=== PATIENT | female | born 1980 ===

== ENCOUNTER 2018-02-18 23:35 | Emergency (ER) | payer OTHER ==
[2018-02-19 00:04] VITALS: BMI 27.7
[2018-02-19 00:53] VITALS: RESP 16; TEMP 98.1
--- NOTE | 2018-02-19 01:36 | ED PDOC ---
Arrival/HPI - General Chief Complaint: Lower Extremity Problem/Injury Time Seen by Provider: 02/19/18 00:28 Historian: Patient - History of Present Illness Narrative History of Present Illness (Text): 02/19/18 01:33 37-year-old female presents today with a 6 day history of left foot and ankle pain status post injury. Patient states 6 days ago she stepped incorrectly while going down the stairs and twisted the foot and ankle. Patient is complaining of pain across the entire foot and along the entire ankle. Patient has been using crutches for ambulation. No medications have been taken for pain at home. Patient denies numbness weakness or tingling in the extremity. Denies calf pain. Patient states pain worsened today. She is complaining of minimal swelling. Denies proximal fibular pain. No other complaints Past Medical History - Provider Review Nursing Documentation Reviewed: Yes - Travel History Have you recently traveled outside [place] w/in the past 3 mons?: No - Psychiatric Hx Substance Use: No - Anesthesia Hx Anesthesia: Yes Hx Anesthesia Reactions: No Family/Social History - Physician Review Nursing Documentation Reviewed: Yes Family/Social History: Unknown Family HX Smoking Status: Never Smoked Hx Alcohol Use: No Hx Substance Use: No Allergies/Home Meds Allergies/Adverse Reactions: Allergies No Known Allergies Allergy (Verified 02/19/18 00:06) Review of Systems - Review of Systems Constitutional: absent: Fatigue, Fevers Respiratory: absent: SOB, Cough Cardiovascular: absent: Chest Pain, Palpitations Gastrointestinal: absent: Abdominal Pain, Nausea, Vomiting Musculoskeletal: Arthralgias (left foot/ankle pain). absent: Back Pain, Neck Pain Neurological: absent: Headache, Dizziness Psychiatric: absent: Anxiety, Depression Physical Exam Vital Signs Reviewed: Yes Vital Signs Temp Pulse Resp BP Pulse Ox 02/18/18 23:55 98.1 F 72 16 137/83 98 Temperature: Afebrile Blood Pressure: Normal Pulse: Regular Respiratory Rate: Normal Appearance: Positive for: Well-Appearing, Non-Toxic, Comfortable Pain Distress: None Mental Status: Positive for: Alert and Oriented X 3 - Systems Exam Head: Present: Atraumatic Neck: Present: Normal Range of Motion Respiratory/Chest: Present: Clear to Auscultation, Good Air Exchange. No: Respiratory Distress, Accessory Muscle Use Cardiovascular: Present: Regular Rate and Rhythm, Normal S1, S2. No: Murmurs Lower Extremity: Present: Normal Inspection, NORMAL PULSES, Normal ROM, Tenderness (left foot/ankle; + ttp over entire dorsal foot and both medial and lateral mallelus; no edema, no erythema; no ecchymosis; full rom of foot and ankle with pain; + ecchymosis over lateral malleolus; no erythema; sensation and distal pulses intact. cap refill <2. no achilles tendon tenderness; no proximal fibular tenderness. no calf tenderness. ), Neurovascularly Intact, Capillary Refill < 2 s. No: CALF TENDERNESS, Swelling, Erythema, Temperature Abnormalties Neurological: Present: GCS=15, Speech Normal Skin: Present: Warm, Dry, Normal Color. No: Rashes Psychiatric: Present: Alert, Oriented x 3 Medical Decision Making ED Course and Treatment: 02/19/18 01:35 Patient nontoxic well-appearing in no distress with stable vital signs X-rays of the left foot: No fracture X-rays of the left ankle: No fracture motrin po Patient placed in short leg posterior splint: Crutches given for ambulation I discussed all results in depth with the patient advised to followup with the orthopedist within the next 2 days. Advised return if symptoms worsen persist or new symptoms develop i advised the patient that although the xrays show no fracture; there is still a possibility for ligamentous or tendon injury the patient must see the orthopedist for further evaluation. Patient verbalizes understanding of discharge instructions and need for immediate followup. all aspects of this case were discussed the attending of record. Impression: Ankle pain, foot pain Motrin every 6 hours as needed for pain Rest, ice, compression, elevation Use crutches for ambulation Followup with the orthopedist within the next 2 days Followup with primary care physician within the next 2 days Return if symptoms worsen persist or if new symptoms develop - RAD Interpretation Radiology Orders: 02/19/18 00:28 ANKLE LEFT 3 VIEWS ROUTINE [RAD] Stat FOOT LEFT 3 VIEWS ROUTINE [RAD] Stat - Medication Orders Current Medication Orders: Discontinued Medications Ibuprofen (Motrin Tab) 600 mg PO STAT STA Stop: 02/19/18 00:29 Last Admin: 02/19/18 00:49 Dose: 600 mg MAR Pain/Vitals Document 02/19/18 00:49 JOL (Rec: 02/19/18 00:50 JOL [id number]) Pain Reassessment Is This A Pain ReAssessment? No Sleep Is patient sleeping during reassessment? No Presence of Pain Presence of Pain Yes Pain Scale Used Pain Scale Used Numeric Location Left, Right or Bilateral Right Pain Location Body Site Ankle Procedures - Splinting Location: left foot/ankle Hand-Made Type: fiberglass Splint: short leg posterior Pre-Proc Neuro Vasc Exam: normal Post-Proc Neuro Vasc Exam: normal Disposition/Present on Arrival - Present on Arrival Any Indicators Present on Arrival: No History of DVT/PE: No History of Uncontrolled Diabetes: No Urinary Catheter: No History of Decub. Ulcer: No History Surgical Site Infection Following: None - Disposition Have Diagnosis and Disposition been Completed?: Yes Diagnosis: Foot pain, Ankle pain Disposition: HOME/ ROUTINE Disposition Time: 01:37 Patient Plan: Discharge Patient Problems: Current Active Problems Problem Status Onset Ankle pain Acute Foot pain Acute Condition: GOOD Discharge Instructions (ExitCare): Muscle and Bone Pain (DC) Additional Instructions: Motrin every 6 hours as needed for pain Rest, ice, compression, elevation Use crutches for ambulation Followup with the orthopedist within the next 2 days Followup with primary care physician within the next 2 days Return if symptoms worsen persist or if new symptoms develop Prescriptions: Ibuprofen [Motrin] 600 mg PO Q6H PRN #20 tab PRN Reason: pain/fever reduction Referrals: Mainor Parham MD [Staff Provider] - Follow up with primary [facility] [Outside] - Follow up with primary [facility] [Outside] - Follow up with primary Camila Davis MD [Medical Doctor] - Follow up with primary Forms: [employer] (Turkish), WORK NOTE
[2018-02-19 02:11] VITALS: BP 125/78; PULSE 70; O2SAT 99
--- NOTE | 2018-02-19 08:46 | RAD ---
Date of service: 02/19/2018 PROCEDURE: Left Foot Radiographs. HISTORY: Foot pain COMPARISON: None. FINDINGS: BONES: Bone alignment and mineralization are normal. There is no acute displaced fracture or bone destruction. JOINTS: Normal. SOFT TISSUES: Normal. OTHER FINDINGS: None. IMPRESSION: No acute fracture or dislocation.
--- NOTE | 2018-02-19 08:47 | RAD ---
Date of service: 02/19/2018 PROCEDURE: Left Ankle Radiographs. HISTORY: Ankle pain COMPARISON: None FINDINGS: BONES: Bone alignment and mineralization are normal. There is no acute displaced fracture or bone destruction. JOINTS: Normal. Ankle mortise maintained. Talar dome intact SOFT TISSUES: Normal. OTHER FINDINGS: None. IMPRESSION: No acute fracture or dislocation.
== END 2018-02-19 02:00 | disposition home or self-care (01) ==
LOC: ED 23:35
DX: M25.572 Pain in left ankle and joints of left foot (principal); M79.672 Pain in left foot